=== PATIENT | female | born 1985 | race Caucasian/White ===

== ENCOUNTER 2020-08-28 13:32 | Outpatient (CLI) | payer OTHER ==
--- NOTE | 2020-08-28 18:38 | XRAY Report ---
PROCEDURE: Finger(s) RT INDICATIONS: SPRAIN OF RIGHT RING FINGER TECHNIQUE: AP hand, 2 views of the ring finger(s) acquired. COMPARISON: None FINDINGS: Bones: No fractures or dislocations. No suspicious bony lesions. Incidental note of negative ulnar variance. Soft tissues: No suspicious soft tissue calcifications. IMPRESSION: No acute osseous abnormality. Reviewed by: Ilan Sanchez DO on 08/28/2020 5:37 PM GUST[facility]O Approved by: Ilan Sanchez DO on 08/28/2020 5:37 PM GUSTAVO Station ID: [id number]
== END 2020-08-28 23:59 | disposition home or self-care (01) ==
LOC: DI.S 13:32 → MERGE 13:32 → DI.S 23:59
PROVIDERS: ATTEND Emergency Medicine
DX: S63.694A Other sprain of right ring finger, initial encounter (principal)